=== PATIENT | female | born 1970 | race Caucasian/White ===

== ENCOUNTER 2017-05-05 18:39 | Emergency (ER) | payer OTHER ==
[2017-05-05 20:34] LABS: BASOPHIL % 0.7 % (0-2); PLATELET COUNT 176 x10^3mcL (130-400); RED CELL DISTRIBUTION WIDTH 13.8 % (11.5-14.5)
[2017-05-05 20:43] LABS: CALCIUM 9.5 mg/dL (8.5-10.1); CARBON DIOXIDE 25.4 mmol/L (21-32); CHLORIDE SERUM 109 mmol/L (98-107); GFR1 > 60 mL/min; GLUCOSE SERUM 88 mg/dL (74-106); POTASSIUM SERUM 3.9 mmol/L (3.5-5.1); SODIUM SERUM 144 mmol/L (136-145)
[2017-05-05 20:47] LABS: ALBUMIN 3.6 g/dL (3.4-5.0); ALKALINE PHOSPHATASE 82 U/L (46-116); ALT/SGPT 32 U/L (14-59); AST/SGOT 27 U/L (15-37); BILIRUBIN TOTAL 0.73 mg/dL (0.20-1.00); TOTAL PROTEIN, SERUM 7.3 g/dL (6.4-8.2)
[2017-05-05 21:13] VITALS: BP 122/88
== END 2017-05-05 21:59 | disposition home or self-care (01) ==
LOC: ED 18:39
PROVIDERS: Emergency Medicine
DX: I10 Essential (primary) hypertension (principal); K21.9 Gastro-esophageal reflux disease without esophagitis; F15.10 Other stimulant abuse, uncomplicated; F41.9 Anxiety disorder, unspecified; Z88.0 Allergy status to penicillin; Z79.899 Other long term (current) drug therapy; Z98.51 Tubal ligation status
CPT/HCPCS: 36415; Q0092

== ENCOUNTER 2017-08-10 02:23 | Emergency (ER) | payer OTHER ==
[2017-08-10 04:18] LABS: PLATELET COUNT 180 x10^3mcL (130-400); RED CELL DISTRIBUTION WIDTH 13.4 % (11.5-14.5)
[2017-08-10 04:19] LABS: BASOPHIL % 2.7 % (0-2)
[2017-08-10 04:26] LABS: CALCIUM 8.9 mg/dL (8.5-10.1); CARBON DIOXIDE 28.2 mmol/L (21-32); CHLORIDE SERUM 108 mmol/L (98-107); CREATININE SERUM 0.9 mg/dL (0.6-1.0); GFR1 > 60 mL/min; GLUCOSE SERUM 113 mg/dL (74-106); POTASSIUM SERUM 3.4 mmol/L (3.5-5.1); SODIUM SERUM 144 mmol/L (136-145)
[2017-08-10 04:30] LABS: ALKALINE PHOSPHATASE 78 U/L (46-116); ALT/SGPT 30 U/L (14-59); AST/SGOT 24 U/L (15-37); BILIRUBIN TOTAL 0.32 mg/dL (0.20-1.00); TOTAL PROTEIN, SERUM 7.2 g/dL (6.4-8.2)
[2017-08-10 04:33] LABS: ALBUMIN 3.3 g/dL (3.4-5.0)
[2017-08-10 05:04] VITALS: BP 122/93
== END 2017-08-10 05:04 | disposition home or self-care (01) ==
LOC: ED 02:23
PROVIDERS: Emergency Medicine
DX: R07.89 Other chest pain (principal); I10 Essential (primary) hypertension; Z88.0 Allergy status to penicillin; Z90.710 Acquired absence of both cervix and uterus; E78.00 Pure hypercholesterolemia, unspecified
CPT/HCPCS: 36415; 99406

== ENCOUNTER 2018-01-04 14:26 | Emergency (ER) | payer OTHER ==
[~2018-01-04] VITALS: Ht 160 cm; Wt 81.6 kg
[2018-01-04 14:30] VITALS: BP 163/79; Ht 160 cm; Wt 81.6 kg
== END 2018-01-04 15:15 | disposition home or self-care (01) ==
LOC: ED 14:26
DX: K08.89 Other specified disorders of teeth and supporting structures (principal); I10 Essential (primary) hypertension; Z88.0 Allergy status to penicillin

== ENCOUNTER 2018-11-27 22:57 | Emergency (ER) | payer OTHER ==
[~2018-11-27] VITALS: Ht 160 cm; Wt 78.9 kg
[2018-11-27 23:11] VITALS: BP 138/86; Ht 160 cm; Wt 78.9 kg
== END 2018-11-28 00:31 | disposition left against medical advice (07) ==
LOC: ED 22:57
DX: Z53.21 Procedure and treatment not carried out due to patient leaving prior to being seen by health care provider (principal)

== ENCOUNTER 2018-11-29 04:12 | Emergency (ER) | payer OTHER ==
[~2018-11-29] VITALS: Ht 160 cm; Wt 79.8 kg
[2018-11-29 04:17] VITALS: Ht 160 cm; Wt 79.8 kg
[2018-11-29 05:19] VITALS: BP 141/101
== END 2018-11-29 05:19 | disposition home or self-care (01) ==
LOC: ED 04:12
DX: J20.9 Acute bronchitis, unspecified (principal); I10 Essential (primary) hypertension; F41.9 Anxiety disorder, unspecified; Z90.710 Acquired absence of both cervix and uterus; Z98.51 Tubal ligation status; Z88.0 Allergy status to penicillin; Z98.890 Other specified postprocedural states
CPT/HCPCS: J1885; J7620; Q0092

== ENCOUNTER 2019-01-29 13:05 | Emergency (ER) | payer OTHER ==
[~2019-01-29] VITALS: Ht 160 cm; Wt 80.3 kg
[2019-01-29 13:09] VITALS: Ht 160 cm; Wt 80.3 kg
[2019-01-29 13:58] VITALS: BP 131/93
== END 2019-01-29 14:14 | disposition home or self-care (01) ==
LOC: ED 13:05
DX: I10 Essential (primary) hypertension (principal); R07.89 Other chest pain; L81.8 Other specified disorders of pigmentation; F41.9 Anxiety disorder, unspecified; Z90.710 Acquired absence of both cervix and uterus; Z98.51 Tubal ligation status; Z88.0 Allergy status to penicillin

== ENCOUNTER 2019-10-27 04:41 | Emergency (ER) | payer OTHER ==
[~2019-10-27] VITALS: Ht 160 cm; Wt 80.0 kg
[2019-10-27 05:01] VITALS: Ht 160 cm; Wt 80.0 kg
[2019-10-27 08:26] VITALS: BP 121/70
== END 2019-10-27 08:26 | disposition home or self-care (01) ==
LOC: ED 04:41
DX: H44.002 Unspecified purulent endophthalmitis, left eye (principal); F17.210 Nicotine dependence, cigarettes, uncomplicated; I10 Essential (primary) hypertension; Z88.0 Allergy status to penicillin; Z90.710 Acquired absence of both cervix and uterus
CPT/HCPCS: 99406